=== PATIENT | female | born 1975 | race Caucasian/White ===

== ENCOUNTER 2017-11-11 09:25 | Outpatient (CLI) | payer OTHER ==
--- NOTE | 2017-11-11 11:41 | MMO ---
BILATERAL SCREENING MAMMOGRAM: DATE: 11/11/17 HISTORY: 42-year-old female for screening mammography. COMPARISON: 10/25/16, 10/05/15, 09/30/14. FINDINGS: Bilateral MLO and CC views of the breasts show extremely dense breast parenchyma, which may obscures lesions on mammography. There is no evidence of suspicious mass, suspicious cluster of microcalcifica tions, or area of architectural distortion. Interpretation of this mammogram was performed with the assistance of computer-aided detection. IMPRESSION: BIRADS 1: Negative Annual screening mammography is recommended. POS: SUN
== END 2017-11-11 09:26 | disposition home or self-care (01) ==
LOC: BICMAMMO 09:25 → SCSMAMMO 09:26
PROVIDERS: ATTEND Obstetrics & Gynecology
DX: Z12.31 Encounter for screening mammogram for malignant neoplasm of breast (principal)
CPT/HCPCS: 77067

== ENCOUNTER 2020-06-01 14:25 | Outpatient (CLI) | payer OTHER ==
--- NOTE | 2020-06-01 15:17 | MMO ---
Right Breast MAMMO Unilat Diag DDI RT+SHIREEN. CLINICAL HISTORY: Patient is 44 years old and is seen for additional evaluation requested from prior study. The patient has the following family history of breast cancer: mother, 40's, malignant (generic). The patient has no personal history of cancer. VIEWS: The views performed were: right craniocaudal with tomosynthesis; right mediolateral oblique with tomosynthesis; and right mediolateral with tomosynthesis. FILMS COMPARED: The present examination has been compared to prior imaging studies performed at [facility] on 02/23/2019 and 05/19/2020, at [facility] on 11/11/2017, and at [facility] on 06/01/2020. This study has been interpreted with the assistance of computer-aided detection. MAMMOGRAM FINDINGS: The breast is heterogeneously dense, which could obscure a lesion on mammography. No definite mass is seen in the posterior inferior breast on addl images or US. IMPRESSION: FINDING IN THE RIGHT BREAST IS PROBABLY BENIGN. FOLLOW-UP IN 6 MONTHS IS RECOMMENDED. THE RESULTS OF THIS EXAM WERE SENT TO THE PATIENT. ACR BI-RADS Category 3 - Probably benign finding - short interval follow-up suggested. [facility] will notify the patient of the need for additional imaging services. MAMMOGRAPHY NOTE: 1. A negative mammogram report should not delay a biopsy if a dominant of clinically suspicious mass is present. 2. Approximately 10% to 15% of breast cancers are not detected by mammography. 3. Adenosis and dense breasts may obscure an underlying neoplasm. Reported by: RADHA BUTLER MD Electonically Signed: [id number]
--- NOTE | 2020-06-01 15:23 | ULT ---
RIGHT BREAST ULTRASOUND: 06/01/20 HISTORY: Abnormal mammogram. FINDINGS: Correlation is made with mammogram of 05/19/20 and today. Sonographic evaluation of the posterior inferior aspect of the right breast demonstrates no definite abnormality. IMPRESSION: BIRADS 3: Probably Benign Finding Initial Short-Interval Follow-Up Suggested Initial short-term follow up (usually 6-month) examination A follow-up right diagnostic mammogram is recommended in six months. POS: OFF
== END 2020-06-01 14:26 | disposition home or self-care (01) ==
LOC: BICMAMMO 14:25
PROVIDERS: ATTEND Obstetrics & Gynecology
DX: N64.59 Other signs and symptoms in breast (principal)
CPT/HCPCS: G0279

== ENCOUNTER 2020-11-18 08:37 | Outpatient (CLI) | payer OTHER | END 2020-11-18 08:38 | disposition home or self-care (01) | LOC: BICMAMMO 08:37 | PROVIDERS: ATTEND Obstetrics & Gynecology | DX: N63.10 Unspecified lump in the right breast, unspecified quadrant (principal) | CPT/HCPCS: G0279 ==

== ENCOUNTER 2022-08-23 11:11 | Outpatient (CLI) | payer BC | END 2022-08-23 11:12 | disposition home or self-care (01) | LOC: BICMAMMO 11:11 | PROVIDERS: ATTEND Obstetrics & Gynecology | DX: Z12.31 Encounter for screening mammogram for malignant neoplasm of breast (principal); Z80.3 Family history of malignant neoplasm of breast | CPT/HCPCS: 77063; 77067 ==

== ENCOUNTER 2023-02-20 08:23 | Outpatient (CLI) | payer BC | END 2023-02-20 08:24 | disposition home or self-care (01) | LOC: SLEEPLAB 08:23 | PROVIDERS: ATTEND Family Medicine | DX: G47.11 Idiopathic hypersomnia with long sleep time (principal); R53.83 Other fatigue | CPT/HCPCS: 95805 ==